=== PATIENT | male | born 1980 | race Caucasian/White ===

== ENCOUNTER 2017-03-03 10:47 | Emergency (ER) | payer SELFPAY ==
--- NOTE | 2017-03-03 13:15 | ED ---
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 Patient stated the wrench he was using flung back and hit him in the left eye area. He believes he closed his eye in time for the impact however the surrounding area and eyeball are painful. After the accident patient states he felt there was something blocking his vision "like it was swollen" however denies blurry vision and visual loss/changes. States these symptoms lasted about 1 hour however have since improved. Currently has no other symptoms besides some tenderness the left keena-orbital area of where wrench hit. Has some scrapes noted at left side of eye and lower eye lid that were bleeding however has resolved. Admits to erythema of left eye. Denies photophobia and FB sensation. Patient denies any other complaints. No treatment [employer]. Denies PMHx. - History of Current Complaint Chief Complaint: EDEyeProblem Time Seen by Provider: 03/03/17 10:58 Hx Obtained From: Patient Onset/Duration: Sudden Onset, Lasting Hours, Resolved Severity: Moderate - Allergies/Home Medications Allergies/Adverse Reactions: Allergies Allergy/AdvReac Type Severity Reaction Status Date / Time No Known Allergies Allergy Verified 03/03/17 10:50 PMH/Surg Hx/FS Hx/Imm Hx Endocrine/Hematology History: Denies: Hx Diabetes Cardiovascular History: Denies: Hx Hypertension Respiratory History: Denies: Hx Asthma - Surgical History Surgery Procedure, Year, and Place: none - Immunization History Immunizations Up to Date: Yes Infectious Disease History: No Infectious Disease History: Denies: Traveled Outside the [place] in Last 30 Days - Family History Known Family History: Positive: None - Social History Alcohol Use: None Substance Use Type: Reports: None Smoking Status (MU): Never Smoked Tobacco Review of Systems Constitutional: Negative Eyes: Negative Positive: Erythema, Other - injury ENT: Negative Cardiovascular: Negative Respiratory: Negative Positive: Other - cuts on left side of eye, and lower eye lid Neurological: Negative All Other Systems Reviewed And Are Negative: Yes Physical Exam Triage Information Reviewed: Yes Vital Signs On Initial Exam: Initial Vitals Temp Pulse Resp BP Pulse Ox 99.2 F 71 16 142/97 97 03/03/17 10:50 03/03/17 10:50 03/03/17 10:50 03/03/17 10:50 03/03/17 10:50 Vital Signs Reviewed: Yes Appearance: Positive: Well-Appearing, No Pain Distress, Well-Nourished Skin: Positive: Warm, Skin Color Reflects Adequate Perfusion, Dry, Other - small .5cm and .25cm abrasion/scrape to left side of eye and left lower lid, not currently bleeding, closed and of no concern. Negative: Cold, Numb, Cyanosis @, Pale, Erythema @ Head/Face: Positive: Normal Head/Face Inspection - besides noted above, Other - no racoon eyes, battles signs or facial bone tenderness, only slightly tender soft tissue over area of impact, "sore" not sukhjinder, not enough to think fracture , no ecchymosis, crepitus, or step off Eyes: Positive: Normal, EOMI, JOCELYNE, Conjunctiva Clear, Conjunctiva Inflammed, Other: - visual acuity 20/20 both eyes. no changes. normal fundoscopic exam from what was able to be visualized, no FB or discharge noted. erythema noted especially to lateral left eye noted. After fluroscein stain no abrasions or uptake noted, no FB. ENT: Positive: Normal ENT inspection, Hearing grossly normal, Pharynx normal, TMs normal. Negative: Nasal congestion, Nasal drainage, Trismus, Muffled/ hoarse voice Neck: Positive: Supple, Nontender, No Lymphadenopathy Respiratory/Lung Sounds: Positive: Clear to Auscultation, Breath Sounds Present. Negative: Rales, Rhonchi, Wheezes Cardiovascular: Positive: Normal, RRR, Pulses are Symmetrical in both Upper and Lower Extremities. Negative: Murmur, Rub Musculoskeletal: Positive: Normal, Strength/ROM Intact Neurological: Positive: Normal, Sensory/Motor Intact, Alert, Oriented to Person Place, Time Procedures - Eye Procedure Alcaine Drops Administered: Yes - normal exam left eye Diagnostics - Vital Signs Vital Signs Temp Pulse Resp BP Pulse Ox 03/03/17 11:24 98.4 F 71 16 142/97 100 03/03/17 10:50 99.2 F 71 16 142/97 97 - Laboratory Lab Statement: Any lab studies that have been ordered have been reviewed, and results considered in the medical decision making process. EENT Course/Dx - Course Course Of Treatment: after physical examination and fluroscein stain no concern for any emergent etiology at this time. No obvious trauma noted to left eye. Appears to have possibly suffered from blown blood vessels due to impact. Contusion to left periorbital space. Given antibiotic prophylactic drops, cool compresses, follow up optho. aware of worsening signs and symptoms and to return if occur. - Differential Diagnoses Differential Diagnoses: Abrasion, Conjunctivitis, Corneal Abrasion, Other - contusion - Diagnoses Provider Diagnoses: Left eye injury Discharge - Discharge Plan Condition: Stable Disposition: HOME Prescriptions: Polymyx/Trimethoprim OPTH* [Polytrim OPHTH*] 1 drop LEFT EYE Q3H #1 btl Patient Education Materials: Eye Pain (ED) Referrals: Maxwell Milligan MD [Primary Care Provider] - Additional Instructions: Use antibiotic drops as prescribed to prevent infection for the next 3-5 days. Cool compresses over eye. Motrin for any discomfort. Follow up with eye doctor. If you develop worsening signs or symptoms such as vision loss, pain or discharge please seek medical attention promptly.
[2017-03-03 13:18] VITALS: BP 138/80
== END 2017-03-03 13:18 | disposition home or self-care (01) ==
LOC: ED 10:47
DX: S05.92XA Unspecified injury of left eye and orbit, initial encounter (principal); W22.8XXA Striking against or struck by other objects, initial encounter; Y93.9 Activity, unspecified; Y92.9 Unspecified place or not applicable
CPT/HCPCS: 99282

== ENCOUNTER 2018-07-06 17:20 | Emergency (ER) | payer BC, OTHER ==
[2018-07-06 19:33] VITALS: BP 143/88
--- NOTE | 2018-07-06 19:48 | UC ---
Throat Pain/Nasal Zach HPI - HPI Summary HPI Summary: 38 year old male presents with 7 day history of subjective fever, fatigue, chills, sweats, nasal congestion, sinus congestion, sore throat, and non- productive cough. States symptoms have been progressively worsening. 2 days ago had some chest discomfort with coughing. Denies ear pain, dysphagia, palpitations, shortness of breath, abdominal pain, nausea, vomiting, or diarrhea. - History of Current Complaint Chief Complaint: UCRespiratory Stated Complaint: CONGESTION,SORE THROAT,FLU LIKE SYMPTOMS X1 WK Time Seen by Provider: 07/06/18 19:32 Hx Obtained From: Patient Pain Intensity: 7 - Allergies/Home Medications Allergies/Adverse Reactions: Allergies Allergy/AdvReac Type Severity Reaction Status Date / Time No Known Allergies Allergy Verified 07/06/18 19:33 Home Medications: Home Medications Dm/Acetaminophen/Doxylamine [Vicks Nyquil Cold & Flu N 15-6.25-325 mg] 2 cap PO QPM PRN 07/06/18 [History Confirmed 07/06/18] Phenylephrine/Dm/Acetaminop/GG [Vicks Dayquil Severe Cold-Flu] 2 each PO BID PRN 07/06/18 [History Confirmed 07/06/18] Vicks Nasal [place] 1 dose BOTH NARES Q6H PRN 07/06/18 [History Confirmed 07/06/18 ] PMH/Surg Hx/FS Hx/Imm Hx Previously Healthy: Yes - Denies significant PMH - Surgical History Surgical History: Yes Surgery Procedure, Year, and Place: right ear calcium deposits, left knee calcium deposits; tonsils, adenoids - Family History Known Family History: Positive: Non-Contributory - Social History Occupation: Employed Full-time Lives: With Family Alcohol Use: Occasionally Substance Use Type: Marijuana Substance Use Comment - Amount & Last Used: 163 today Smoking Status (MU): Never Smoked Tobacco Review of Systems All Other Systems Reviewed And Are Negative: Yes Constitutional: Positive: Fever, Chills, Fatigue Eyes: Negative: Drainage, Eye Redness ENT: Positive: Sore Throat, Nasal Discharge, Sinus Congestion. Negative: Ear Ache, Sinus Pain/Tenderness Respiratory: Positive: Cough. Negative: Shortness Of Breath Cardiovascular: Positive: Chest Pain. Negative: Palpitations Gastrointestinal: Negative: Abdominal Pain, Vomiting, Diarrhea, Nausea Is Patient Immunocompromised?: No Physical Exam - Summary Physical Exam Summary: GENERAL APPEARANCE: Well developed, well nourished, alert and cooperative, and appears to be in no acute distress. EYES: Conjunctiva clear. No discharge. Vision is grossly intact. EARS: External auditory canals and tympanic membranes clear, hearing grossly intact. NOSE: Nasal congestion with moderate erythema and edema of mucosa. No nasal discharge. No sinus tenderness to palpation. THROAT: Mild pharyngeal erythema. No tonsilar swelling or exudate. Oral cavity normal. Teeth and gingiva in good general condition. NECK: Neck supple, non-tender without lymphadenopathy. CARDIAC: Normal S1 and S2. No S3, S4 or murmurs. Rhythm is regular. There is no peripheral edema, cyanosis or pallor. Extremities are warm and well perfused. Capillary refill is less than 2 seconds. LUNGS: Clear to auscultation and percussion without rales, rhonchi, wheezing or diminished breath sounds. Occasional dry, nonproductive cough. ABDOMEN: Positive bowel sounds. Soft, nondistended, nontender. No guarding or rebound. No masses or hepatosplenomegally. SKIN: Skin normal color, texture and turgor with no lesions or eruptions. Triage Information Reviewed: Yes Vital Signs: Initial Vital Signs Temp 99.5 F 07/06/18 19:25 Pulse 82 07/06/18 19:25 Resp 18 07/06/18 19:25 BP 143/88 07/06/18 19:25 Pulse Ox 99 07/06/18 19:25 Vital Signs Reviewed: Yes Throat Pain/Nasal Course/Dx - Course Course Of Treatment: 38 year old male presents with 7 day history of subjective fever, fatigue, chills, sweats, nasal congestion, sinus congestion, sore throat , and non-productive cough. States symptoms have been progressively worsening. 2 days ago had some chest discomfort with coughing. Denies ear pain, dysphagia, palpitations, shortness of breath, abdominal pain, nausea, vomiting, or diarrhea. Afebrile. VSS. Exam revealed nasal congestion and mild pharyngeal erythema without tonsilar exudate. Occasional nonproductive cough. With the progressively worsening symptoms will treat for URI vs sinusitits with Augmentin 875 mg BID x 10 days as well as symptomatic treatment. He is to follow up with his PCP in 7 days if symptoms persist. Warning symptoms reviewed. Verbalizes understanding and agrees with POC. - Differential Dx/Diagnosis Differential Diagnosis/HQI/PQRI: Influenza, Pharyngitis, Sinusitis, Tonsillitis , URI Provider Diagnosis: Upper respiratory infection with cough and congestion Discharge - Sign-Out/Discharge Documenting (check all that apply): Patient Departure All imaging exams completed and their final reports reviewed: No Studies - Discharge Plan Condition: Stable Disposition: HOME Prescriptions: Amoxicillin/Clavulanate TAB* [Augmentin TAB 875*] 875 mg PO BID #20 tab Fluticasone NASAL SPRAY 50MCG* [Flonase NASAL SPRAY 50MCG*] 2 spray BOTH NARES DAILY #1 btl Patient Education Materials: Upper Respiratory Infection (ED) Forms: *Work Release Referrals: Maxwell Milligan MD [Primary Care Provider] - 7 Days (If symptoms persist.) Additional Instructions: Your history and exam are consistent with an upper respiratory infection. Start Augmentin 875 mg 1 tab every 12 hours for 10 days. Take with food to avoid upset stomach. Be sure to finish the entire course even if you are feeling better. Drink plenty of fluids to avoid dehydration especially if you are running any fever. Use a saline rinse kit such as Neti Pot or NeilMed at least twice a day to help thin secretions and promote drainage of the sinuses. Use fluticasone (Flonase) nasal spray 2 sprays each nostril once daily. Use a decongestant such as Sudafed according to directions for the congestion. Take over the counter acetaminophen (Tylenol) or ibuprofen (Advil, Motrin) according to directions as needed for pain or fever. Follow up with your primary care provider in 7 days if symptoms persist. Seek immediate medical attention in the emergency room if you have fever greater than 100.5 F despite taking acetaminophen or ibuprofen, have chest pain , difficulty breathing, or have any worsening of symptoms. - Billing Disposition and Condition Condition: STABLE Disposition: Home
== END 2018-07-06 19:55 | disposition home or self-care (01) ==
LOC: UCCORT 17:20
DX: J06.9 Acute upper respiratory infection, unspecified (principal); R05 Cough; R09.81 Nasal congestion
CPT/HCPCS: 99212; G0463